=== PATIENT | male | born 1965 | race Caucasian/White ===

== ENCOUNTER 2018-05-28 21:08 | Observation (INO) | payer OTHER ==
[2018-05-28 21:47] LABS: PLATELET COUNT 288 10^3/uL (150-400)
--- NOTE | 2018-05-28 21:51 | EDPHY ---
HPI/HX/ROS/PE/MDM Narrative: CHIEF COMPLAINT: Weakness HISTORY OF PRESENT ILLNESS: The patient is a 52 y/o male with a history of 2 cardiac stents, multiple IN's, TIA, CHF, CAD, emphysema, and COPD arriving via EMS complaining of weakness while walking uphill tonight. The patient was at [facility] for a mental health evaluation. While driving back to the homeless snf his car ran out of gas. While walking to the gas station, the patient became lightheaded, weak, felt like his muscles were locking up, and thought he was going to fall down. He also developed chest and eye pain. Due to these symptoms he called 911. Currently he has lower left chest pain, lower left abdominal pain, and feels nauseous. He denies taking his baby Aspirin today. Denies taking an anticoagulant, using an inhaler or supplemental oxygen. No fever, chills, palpitations, vomiting, diarrhea, urinary complaints, headache. REVIEW OF SYSTEMS: Aside from elements discussed in the HPI, a comprehensive 10 system review of systems was reviewed and is negative. PAST MEDICAL HISTORY: 2 cardiac stents, multiple IN's, CHF, CAD, TIA, emphysema , COPD, sleep apnea, fatty liver, basal cell carcinoma, prostate cancer, oral cancer SOCIAL HISTORY: Homeless, originally from [place], single VITAL SIGNS: Reviewed by me GENERAL: Obese, resting comfortably in no respiratory distress. HEENT: Atraumatic. Eyes: No icterus, no injection. Mouth: dry mucous membranes. No erythema or lesions. Neck: supple with no adenopathy, Cushingoid hump LUNGS: Diminished breath sounds, prolonged expiratory phase, no wheezes, rhonchi or rales. CARDIAC: Tachycardia, no rubs, murmurs or gallops. ABDOMEN: Protuberant, soft, mild tenderness in left lower quadrant, nondistended , bowel sounds normal. BACK: No CVA tenderness. EXTREMITIES: No trauma. No edema. Range of motion is normal throughout. NEURO: Alert and oriented, grossly nonfocal. SKIN: Warm and dry, no rash. PSYCHIATRIC: Normal mentation, no agitation. Portions of this note were transcribed by a medical cash poster. I personally performed a history, physical exam, medical decision making, and confirmed accuracy of information the transcribed note. ED Course: The patient is a 52 y/o male with a history of 2 cardiac stents, multiple IN's, TIA, CHF, CAD, emphysema, and COPD arriving via EMS presenting with weakness, near syncope, chest pain, shortness of breath, and nausea while walking uphill tonight. On exam the patient has diminished breath sounds with a prolonged expiratory phase. Patient's O2Sats are around 90% while on room air. Labs, EKG, and chest x-ray ordered; 324mg PO Aspirin, DuoNeb, and 1L IV NS administered. Patient also reports that he has been having left lower quadrant abdominal discomfort and was seen at [facility] today. They advised that he have a workup to rule out an intra-abdominal mass as he has a history of having oral cancer, prostate cancer, and skin cancer. 2120: 12-LEAD EKG: Please see the full report in [facility]. My interpretation: Sinus arrhythmia, left axis deviation 2135: Patient has a negative chest x-ray. 2234: Patient has a negative POC troponin. 2258: I consulted with the hospitalist service, Dr. Stover accepts admission of this patient. 2305: Reassessed patient and discussed laboratory and imaging findings. I have also discussed plan for admission, which he is comfortable with. Patient reports improved air movement after the neb. He declines Solu-Medrol. Patient does have a large cushingoid hump at the back of his neck secondary to steroids. MDM: Differential diagnosis for the patient's shortness of breath was considered including but not limited to COPD exacerbation, pulmonary emboli, pulmonary edema, congestive heart failure, and cardiac causes. - Data Points Imaging Results: Imaging Impressions Chest X-Ray 05/28/18 21:35 Impression: Normal chest. Imaging: I viewed and interpreted images myself Laboratory Results: Laboratory Results 05/28/18 21:40 05/28/18 21:40 05/28/18 05/28/18 05/28/18 22:46 21:41 21:40 WBC RBC Hgb Hct MCV MCH MCHC RDW Plt Count MPV Neut % (Auto) Lymph % (Auto) Wilkes % (Auto) Eos % (Auto) Baso % (Auto) Nucleat RBC Rel Count Absolute Neuts (auto) Absolute Lymphs (auto) Absolute Monos (auto) Absolute Eos (auto) Absolute Basos (auto) Absolute Nucleated RBC Immature Gran % Immature Gran # D-Dimer 0.31 ug/mLFEU ug/mLFEU (0.00-0.50) Sodium Potassium Chloride Carbon Dioxide Anion Gap BUN Creatinine Estimated GFR Glucose Calcium Total Bilirubin 0.7 mg/dL mg/dL (0.1-1.4) Conjugated Bilirubin 0.1 mg/dL mg/dL (0.0-0.5) Unconjugated Bilirubin 0.6 mg/dL mg/dL (0.0-1.1) AST 30 IU/L IU/L (17-59) ALT 43 IU/L IU/L (21-72) Alkaline Phosphatase 109 IU/L IU/L (38-126) POC Troponin I 0.00 ng/mL ng/mL (0.00-0.08) Total Protein 7.0 g/dL g/dL (6.3-8.2) Albumin 4.1 g/dL g/dL (3.5-5.0) Lipase 61 IU/L IU/L (23-300) 05/28/18 05/28/18 21:40 21:40 WBC 9.81 10^3/uL H 10^3/uL (3.80-9.50) RBC 5.04 10^6/uL 10^6/uL (4.40-6.38) Hgb 14.0 g/dL g/dL (13.7-17.5) Hct 42.8 % % (40.0-51.0) MCV 84.9 fL fL (81.5-99.8) MCH 27.8 pg L pg (27.9-34.1) MCHC 32.7 g/dL g/dL (32.4-36.7) RDW 16.4 % H % (11.5-15.2) Plt Count 288 10^3/uL 10^3/uL (150-400) MPV 9.7 fL fL (8.7-11.7) Neut % (Auto) 73.8 % % (39.3-74.2) Lymph % (Auto) 17.6 % % (15.0-45.0) Wilkes % (Auto) 5.5 % % (4.5-13.0) Eos % (Auto) 1.6 % % (0.6-7.6) Baso % (Auto) 0.5 % % (0.3-1.7) Nucleat RBC Rel Count 0.0 % % (0.0-0.2) Absolute Neuts (auto) 7.23 10^3/uL H 10^3/uL (1.70-6.50) Absolute Lymphs (auto) 1.73 10^3/uL 10^3/uL (1.00-3.00) Absolute Monos (auto) 0.54 10^3/uL 10^3/uL (0.30-0.80) Absolute Eos (auto) 0.16 10^3/uL 10^3/uL (0.03-0.40) Absolute Basos (auto) 0.05 10^3/uL 10^3/uL (0.02-0.10) Absolute Nucleated RBC 0.00 10^3/uL 10^3/uL (0-0.01) Immature Gran % 1.0 % % (0.0-1.1) Immature Gran # 0.10 10^3/uL 10^3/uL (0.00-0.10) D-Dimer Sodium 138 mEq/L mEq/L (135-145) Potassium 4.0 mEq/L mEq/L (3.3-5.0) Chloride 99 mEq/L mEq/L (97-110) Carbon Dioxide 28 mEq/l mEq/l (22-31) Anion Gap 11 mEq/L mEq/L (8-16) BUN 22 mg/dL mg/dL (7-23) Creatinine 0.9 mg/dL mg/dL (0.7-1.3) Estimated GFR > 60 Glucose 354 mg/dL H mg/dL (70-100) Calcium 10.0 mg/dL mg/dL (8.5-10.4) Total Bilirubin Conjugated Bilirubin Unconjugated Bilirubin AST ALT Alkaline Phosphatase POC Troponin I Total Protein Albumin Lipase Medications Given: Discontinued Medications Albuterol/Ipratropium (Duoneb) 3 ml IH EDNOW ONE Stop: 05/28/18 22:05 Last Admin: 05/28/18 22:23 Dose: 3 ml Aspirin (Aspirin) 324 mg PO EDNOW ONE Stop: 05/28/18 22:05 Last Admin: 05/28/18 22:22 Dose: 324 mg Sodium Chloride (Ns) 500 mls @ 0 mls/hr IV EDNOW ONE; Wide Open PRN Reason: Protocol Stop: 05/28/18 22:05 Last Admin: 05/28/18 22:23 Dose: 500 mls Point of Care Test Results: Chemistry 05/28/18 21:41 POC Troponin I 0.00 ng/mL ng/mL (0.00-0.08) General Time Seen by Provider: 05/28/18 21:48 Initial Vital Signs: Initial Vital Signs Temperature (C) 36.9 C 05/28/18 21:10 Heart Rate 104 H 05/28/18 21:10 Respiratory Rate 18 05/28/18 21:10 Blood Pressure 129/84 H 05/28/18 21:10 O2 Sat (%) 93 05/28/18 21:10 O2 Delivery Mode Room Air Allergies/Adverse Reactions: No Known Allergies Allergy (Unverified 05/28/18 23:17) Departure - Departure Disposition: [facility] In[facility] Acute Clinical Impression: Hypoxic Chest pain Qualifiers: Chest pain type: other chest pain Qualified Code(s): R07.89 - Other chest pain Condition: Fair Report Scribed for: Karina Lancaster Report Scribed by: Britt Avalos Date of Report: 05/28/18 Time of Report: 21:51
[2018-05-28] MEDS ORDERED: ASPIRIN 81 MG CHEWABLE TAB PO ONE (22:04)
[2018-05-28] MEDS ORDERED: IPRATROPIUM/ALBUTEROL 3 ML DEYVIAL IH ONE (22:04)
[2018-05-28] MEDS ORDERED: NS 500 ML IV ONE (22:04)
[2018-05-28] MEDS ORDERED: ONDANSETRON DISINTEGRATING 4 MG TAB PO PRN (23:17)
[2018-05-28] MEDS ORDERED: ACETAMINOPHEN 325 MG TAB PO PRN (23:17)
[2018-05-28] MEDS ORDERED: ONDANSETRON 4 MG/2 ML VIAL IVP PRN (23:17)
[2018-05-28] MEDS ORDERED: ALBUTEROL 3 ML DEYVIAL IH PRN (23:17)
[2018-05-28] MEDS ORDERED: D50W 25 GM/50 ML VIAL IVP PRN (23:49)
--- NOTE | 2018-05-29 00:04 | CPEKG ---
Test Reason : OPEN Blood Pressure : / mmHG Vent. Rate : 078 BPM Atrial Rate : 073 BPM P-R Int : 146 ms QRS Dur : 096 ms QT Int : 359 ms P-R-T Axes : 062 -32 033 degrees QTc Int : 409 ms Sinus arrhythmia Left axis deviation Confirmed by Karina Lancaster ([id number]) on 05/29/2018 12:03:36 AM Referred By: Confirmed By:Karina Lancaster
--- NOTE | 2018-05-29 01:05 | PDGENHP ---
History and Physical - Chief Complaint Chest pain - History of Present Illness 52 yo morbidly obese patient with hx of CAD s/p PCI presenta fter episode of chest pain. Patient was walking up a hill today when he experienced L-sided chest pain associated with dizziness and shortness of breath. The hernandez reminded him of his previous heart attacks. The pain lasted several hours but is now resolved. He arrived here recently from [place] where he received his previous medical care. Case discussed with ED physician Dr. Lancaster; records reviewed in EMR. History Information - Allergies/Home Medication List Allergies/Adverse Reactions: No Known Allergies Allergy (Unverified 05/28/18 23:17) I have personally reviewed and updated: family history, medical history - Past Medical History coronary artery disease, diabetes type 2 - Surgical History Reports: appendectomy, cholecystectomy, hernia repair, coronary stent - Family History Positive for: diabetes type II, CAD - Social History Smoking Status: Former smoker Review of Systems Review of Systems: ROS: 10pt was reviewed & negative except for what was stated in HPI & below Physical Exam Physical Exam: Temp Pulse Resp BP Pulse Ox 36.9 C 104 H 18 129/84 H 93 05/28/18 21:10 05/28/18 21:10 05/28/18 21:10 05/28/18 21:10 05/28/18 21:10 Constitutional: no apparent distress, obese Eyes: PERRL, EOMI Ears, Nose, Mouth, Throat: moist mucous membranes, no oral mucosal ulcers Cardiovascular: regular rate and rhythym, systolic murmur Respiratory: no respiratory distress, clear to auscultation Gastrointestinal: normoactive bowel sounds, soft, non-tender abdomen Skin: warm, normal color Musculoskeletal: full muscle strength, no muscle tenderness Neurologic: AAOx3, CN II-XII Intact Psychiatric: interacting appropriately, not anxious Lab Data & Imaging Review 05/28/18 21:40 05/28/18 21:40 WBC 9.81 10^3/uL (3.80-9.50) H 05/28/18 21:40 RBC 5.04 10^6/uL (4.40-6.38) 05/28/18 21:40 Hgb 14.0 g/dL (13.7-17.5) 05/28/18 21:40 Hct 42.8 % (40.0-51.0) 05/28/18 21:40 MCV 84.9 fL (81.5-99.8) 05/28/18 21:40 MCH 27.8 pg (27.9-34.1) L 05/28/18 21:40 MCHC 32.7 g/dL (32.4-36.7) 05/28/18 21:40 RDW 16.4 % (11.5-15.2) H 05/28/18 21:40 Plt Count 288 10^3/uL (150-400) 05/28/18 21:40 MPV 9.7 fL (8.7-11.7) 05/28/18 21:40 Neut % (Auto) 73.8 % (39.3-74.2) 05/28/18 21:40 Lymph % (Auto) 17.6 % (15.0-45.0) 05/28/18 21:40 [place] % (Auto) 5.5 % (4.5-13.0) 05/28/18 21:40 Eos % (Auto) 1.6 % (0.6-7.6) 05/28/18 21:40 Baso % (Auto) 0.5 % (0.3-1.7) 05/28/18 21:40 Nucleat RBC Rel Count 0.0 % (0.0-0.2) 05/28/18 21:40 Absolute Neuts (auto) 7.23 10^3/uL (1.70-6.50) H 05/28/18 21:40 Absolute Lymphs (auto) 1.73 10^3/uL (1.00-3.00) 05/28/18 21:40 Absolute Monos (auto) 0.54 10^3/uL (0.30-0.80) 05/28/18 21:40 Absolute Eos (auto) 0.16 10^3/uL (0.03-0.40) 05/28/18 21:40 Absolute Basos (auto) 0.05 10^3/uL (0.02-0.10) 05/28/18 21:40 Absolute Nucleated RBC 0.00 10^3/uL (0-0.01) 05/28/18 21:40 Immature Gran % 1.0 % (0.0-1.1) 05/28/18 21:40 Immature Gran # 0.10 10^3/uL (0.00-0.10) 05/28/18 21:40 D-Dimer 0.31 ug/mLFEU (0.00-0.50) 05/28/18 22:46 Sodium 138 mEq/L (135-145) 05/28/18 21:40 Potassium 4.0 mEq/L (3.3-5.0) 05/28/18 21:40 Chloride 99 mEq/L (97-110) 05/28/18 21:40 Carbon Dioxide 28 mEq/l (22-31) 05/28/18 21:40 Anion Gap 11 mEq/L (8-16) 05/28/18 21:40 BUN 22 mg/dL (7-23) 05/28/18 21:40 Creatinine 0.9 mg/dL (0.7-1.3) 05/28/18 21:40 Estimated GFR > 60 05/28/18 21:40 Glucose 354 mg/dL (70-100) H 05/28/18 21:40 Calcium 10.0 mg/dL (8.5-10.4) 05/28/18 21:40 Total Bilirubin 0.7 mg/dL (0.1-1.4) 05/28/18 21:40 Conjugated Bilirubin 0.1 mg/dL (0.0-0.5) 05/28/18 21:40 Unconjugated Bilirubin 0.6 mg/dL (0.0-1.1) 05/28/18 21:40 AST 30 IU/L (17-59) 05/28/18 21:40 ALT 43 IU/L (21-72) 05/28/18 21:40 Alkaline Phosphatase 109 IU/L (38-126) 05/28/18 21:40 POC Troponin I 0.00 ng/mL (0.00-0.08) 05/28/18 21:41 Total Protein 7.0 g/dL (6.3-8.2) 05/28/18 21:40 Albumin 4.1 g/dL (3.5-5.0) 05/28/18 21:40 Lipase 61 IU/L (23-300) 05/28/18 21:40 Imaging Review: Imaging Impressions Chest X-Ray 05/28/18 21:35 Impression: Normal chest. Visualized and Interpreted EKG results: Yes EKG Interpretation: Positive for: normal sinsus rhythm Assessment & Plan Assessment: 52 yo M w/ hx of DM and CAD presents with chest pain. Plan: 1. Chest pain - Typical chest pain reminiscent of previous heart attacks, per patient. Initial evaluation was negative with troponin of 0 and ECG without acute ischemia(personally interpreted). HEART score of 5 indicating admission for observation. - Admit to PCU for observation - Monitor on telemetry, trend cardiac enzymes - Proceed per chest pain protocol pending above 2. CAD - Hx of PCI to LAD x2 in 2014. Patient reports he has had 10 NH's. - Continue home medications pending reconciliation - Acute management as above 3. IDDM - Patient takes U-500 roughly 20 units BID for this. - Will manage with insulin lispro standard SSI + insulin glargine 20 u BID initially, adjust as indicated - Check BG ACHS, D50 PRN for hypoglycemia Diet - NPO @ [place] Code - Full Ppx - LMWH Dispo - Admit under observation status
[2018-05-29 04:16] LABS: PLATELET COUNT 235 10^3/uL (150-400)
[2018-05-29 07:30] VITALS: BP 132/81
[2018-05-29] MEDS ORDERED: INSULIN LISPRO 100 UNIT/ML SC SCH (08:00)
[2018-05-29] MEDS ORDERED: ENOXAPARIN 40 MG/0.4 ML SYR SC SCH ×2 (09:00)
[2018-05-29] MEDS ORDERED: INSULIN GLARGINE 100 UNITS/ML UNIT SC SCH ×2 (09:00→21:00)
[2018-05-29] MEDS ORDERED: ASPIRIN 81 MG CHEWABLE TAB PO SCH (09:15)
[2018-05-29] MEDS ORDERED: VENLAFAXINE HCL 75 MG TAB PO SCH (09:15)
[2018-05-29] MEDS ORDERED: QUEtiapine FUMARATE 100 MG TAB PO SCH (09:15)
--- NOTE | 2018-05-29 15:59 | GDS ---
PRIMARY CARE PROVIDER: None currently established as patient recently moved to [place] from [place] . DISCHARGE DIAGNOSIS: Chest pain. HISTORY OF PRESENT ILLNESS: The patient is a pleasant 52-year-old gentleman with a past medical hist ory of coronary artery disease with a history of PCI with 2 LAD stents, who presented to the emergenc y room complaining of chest discomfort. His chest pain resolved at the time of his presentation in [facility] hospital [facility] room. He had no recurrence overnight. He was admitted for further monitoring. His tro ponins were trended overnight and negative x2. His ECG reviewed by myself personally did not show an y ST depressions or ST-segment elevations or depressions. He was felt stable for discharge from the hospital with a plan of short-term followup with Cardiology, which he will need to establish with any way in light of his cardiac history and plan to reside indefinitely in [place]. Patient seemed agre eable to these recommendations. HOSPITAL COURSE BY PROBLEM: 1. Chest pain. Patient ruled out for acute MA overnight with a normal ECG and normal troponins. I have recommended that he continue with his cardiac medications and schedule a formal consultation as an outpatient with [facility] for further recommendations and consideration of outpatient cardiac stress testing. 2. Coronary artery disease, patient has a history of a PCI x2 with LAD stents. Continue current med [facility] management including aspirin and statin therapy. 3. Diabetes mellitus type 2, insulin dependent. No changes were made during this hospitalization. He will continue with his insulin regimen that he came into the hospital with. Hemoglobin A1c was ob tained, but is currently pending at the time of discharge. It sounds like he has a followup plan wit h the [facility] for ongoing primary care. 4. PTSD, patient has continued on Seroquel and venlafaxine. 5. Disposition, patient currently does not have a home, but lives out of his vehicle here in [facility]. EXAM: On day of discharge: VITAL SIGNS: Temperature 36.6, blood pressure 132/81, heart rate 66, re spirations 22, saturating 98% 4 L. GENERAL: Patient appears comfortable. He is awake, alert, conve rsant, no acute distress. HEART: Regular no murmurs appreciated. LUNGS: Clear to auscultation wit h normal respiratory effort. ABDOMEN: Obese, soft, nontender, nondistended. Normal bowel sounds. : No Hooks catheter in place. EXTREMITIES: No pitting edema or calf pain with palpation. NOTABLE STUDIES: White blood cell count 8, hemoglobin 12, platelets 235. D-dimer negative at 0.31. Sodium 138, potassium 4.1, chloride 104, bicarbonate 25, BUN 20, creatinine 0.7, glucose 302. Liver function tests within normal limits. Troponins negative x2. Lipase 61. DISCHARGE MEDICATIONS: 1. Aspirin 81 mg daily. 2. Atorvastatin 80 mg nightly. 3. Toviaz 8 mg daily. 4. Regular insulin. 5. Metoprolol 25 mg nightly. 6. Seroquel 100 mg twice a day. 7. Venlafaxine 75 mg twice a day. DISCHARGE INSTRUCTIONS: I have recommended that the patient have a followup visit with [facility] for formal cardiology consultation to discuss outpatient stress testing. He plans on living in [facility] for the foreseeable future, so would probably be reasonable for him to go ahead and establish [facility] at this time as well. Otherwise, I recommend keeping his followup as scheduled with [facility] for ongoing primary care. 35 minutes of time dedicated to discharge efforts. /[id number]/MODL
[2018-05-29] MEDS ORDERED: METOPROLOL TARTRATE 25 MG TAB PO SCH (21:00)
[2018-05-29] MEDS ORDERED: ATORVASTATIN CALCIUM 40 MG TAB PO SCH (21:00)
--- NOTE | 2018-05-30 10:22 | ASMTLACE ---
LACE Length of stay for Answers: Less than 1 day current admission Acuity / Level of Answers: No Care: Did the patient have an inpatient admission? Comorbidities - select Answers: Coronary Artery Disease all that apply Diabetes (uncontrolled or controlled) Previous myocardial infarction Other Notes: Morbid obesity # of Emergency department Answers: 1-2 visits in the last 6 months Social determinants Answers: Homelessness (street, [facility]) Lack of community resources and/or lack of social support (no pcp, lives alone, transportation, akil d) Score: 13 Date Signed: 05/30/2018 10:21 AM Electronically Signed By:Cristina Mireles RN
--- NOTE | 2018-05-30 10:30 | ASDISCHSUM ---
Discharge Information Plan Status:Homeless/[facility] Medically Cleared to Leave:05/29/2018 Discharge Date:05/29/2018 12:46 PM CM D/C Disposition:Streets (Homeless) ADT D/C Disposition:Home, Routine, Self-Care Projected Discharge Date:05/29/2018 12:46 PM Transportation at D/C:Bus Ticket Discharge Delay Reason: Follow-Up Date:05/29/2018 12:46 PM Discharge Slot:1 - 8:01 am - 12:00 noon Final Diagnosis:Chest pain, morbid obesity, CAD, hx of prior FL, DM type II Placement Information Patient Contact Information Contact Name:FATOUMATA Relationship: Address: Work Phone: City: [facility] Phone: [facility]/[employer] Code: Email: Financial Information Financial Class:Medicare Primary Plan Desc:MEDICARE OUTPATIENT Primary Plan Number:[id number] Secondary Plan Desc: Secondary Plan Number: Assessment Information LACE LACE Length of stay for Answers: Less than 1 day current admission Acuity / Level of Answers: No Care: Did the patient have an inpatient admission? Comorbidities - select Answers: Coronary Artery Disease all that apply Diabetes (uncontrolled or controlled) Previous myocardial infarction Other Notes: Morbid obesity # of Emergency department Answers: 1-2 visits in the last 6 months Social determinants Answers: Homelessness (street, snf) Lack of community resources and/or lack of social support (no pcp, lives alone, transportation, akil d) Score: 13 Date Signed: 05/30/2018 10:21 AM Electronically Signed By:Cristina Mireles RN [facility] Progress Note CM Note CM Note Notes: Note for Thursday05/29/18, late entry - [employer] down for maintenance Thursday afternoon/evening Reviewed chart, spoke with CEDRIC Morfin regarding discharge plan of care, pt's progress. Pt admitted with chest pain. History includes morbid obesity, CAD, hx of prior FL, DM type 2. Per Shelbie, pt to discharge independently. Met with pt to discuss current living situation and potential needs. Pt reports being homeless, living in his van and staying at the snf. Pt denies needs, except a bus ticket to get back to his van. Local bus pass provided. IM/SCHULTZ forms signed, placed in chart. Pt to follow up as directed. CM available for any further issues or concerns. Discharge Plan: Streets/snf (pt is homeless) Date Signed: 05/30/2018 10:26 AM Electronically Signed By:Cristina Mireles RN Intervention Information Intervention Type:*IM-Signed Date of Service:05/30/2018 10:22 AM Patient Type:Observation Staff Member:CEDRIC Mireles Taylor Hours: Discipline: Severity: Comment: Intervention Type:*SCHULTZ-Signed Date of Service:05/30/2018 10:22 AM Patient Type:Observation Staff Member:CEDRIC Mireles Taylor Hours: Discipline: Severity: Comment: Intervention Type:Bus Pass Date of Service:05/30/2018 10:22 AM Patient Type:Observation Staff Member:CEDRIC Mireles Taylor Hours: Discipline: Severity: Comment:
== END 2018-05-29 12:46 | disposition home or self-care (01) ==
LOC: F2W 05-29 01:18
PROVIDERS: ADMIT Student in an Organized Health Care Education/Training Program; ATTEND Internal Medicine
DX: R07.9 Chest pain, unspecified (principal); I25.10 Atherosclerotic heart disease of native coronary artery without angina pectoris; E11.9 Type 2 diabetes mellitus without complications; E66.01 Morbid (severe) obesity due to excess calories; F43.10 Post-traumatic stress disorder, unspecified; E86.9 Volume depletion, unspecified; I25.2 Old myocardial infarction; I50.9 Heart failure, unspecified; J43.9 Emphysema, unspecified; Z86.73 Personal history of transient ischemic attack (TIA), and cerebral infarction without residual deficits; Z95.5 Presence of coronary angioplasty implant and graft; Z59.0 Homelessness; Z79.4 Long term (current) use of insulin
CPT/HCPCS: 71046; 93005; 96360; 99285; G0378; J1650; J1815; 84484-PO

== ENCOUNTER 2018-06-07 15:56 | Observation (INO) | payer OTHER ==
[2018-06-07] MEDS ORDERED: NITROGLYCERIN 0.4 MG BTL SL ONE (16:09)
--- NOTE | 2018-06-07 16:09 | EDPHY ---
General Time Seen by Provider: 06/07/18 16:01 Narrative: CHIEF COMPLAINT: Chest pain HISTORY OF PRESENT ILLNESS: Patient presents by private vehicle with complaints of chest pain. Is a left- sided chest pain that started around 10 30 or 11:00 a.m.. It is constant duration. Described as a sharp, stabbing pain. Somewhat worse with exertion. Does not radiate. No shortness of breath. Occasional cough. The pain did not improve with 325 mg of aspirin or 1 sublingual nitro administered at 2:00 p.m.. He states that he has had somewhat of a upper respiratory infection over the past week. He has extensive coronary artery disease with previous AK, multiple stents, hypertension, dyslipidemia, diabetes mellitus and morbid obesity. He has no improvement throughout the day. He has a cardiology appointment scheduled next Thursday but does not know the name. He is scheduled for a stress test within. Nonsmoker. Recently relocated from [place]. Family history positive for CAD less than 60 years old. No other associated complaints or modifying factors. REVIEW OF SYSTEMS: 10 systems were reviewed and negative with the exception of the elements mentioned in the history of present illness. PCP: Ashwini SPECIALISTS: Pending appointment with [facility] on Thursday the PAST MEDICAL HISTORY: Dyslipidemia, diabetes mellitus, coronary artery disease with stents, myocardial infarction, hypertension, morbid obesity PAST SURGICAL HISTORY: PCI with stent placement SOCIAL HISTORY: Never smoker. No drug or alcohol use. Recently moved from [place] 1 month ago. FAMILY HISTORY: Noncontributory EXAMINATION: General Appearance: Alert, no distress Head: normocephalic, atraumatic Eyes: Pupils equal and round, no conjunctival pallor or injection ENT, Mouth: Mucous membranes moist Neck: Normal inspection, supple, non-tender Respiratory: Lungs are clear to auscultation Cardiovascular: Regular rate and rhythm. No murmur good signs of perfusion. Gastrointestinal: Morbidly obese Abdomen is soft and nontender Neurological: A&O, nonfocal, normal gait Skin: Warm and dry, no rash Extremities: Nontender, no pedal edema Psychiatric: Mood and affect normal DIFFERENTIAL DIAGNOSES: Including but not limited to ACS, PE, pneumonia, stable angina, unstable angina , pericarditis, pneumonitis, pericardial effusion, soft diet this, reflux MDM: 4:10 p.m. Chest pain in patient with multiple risk factors for coronary artery disease and known coronary disease. His initial EKG does not reveal any acute ischemia. I do not have a comparison for this. He has moderate risk but in no acute distress. Vital signs are stable. No SIRS criteria. Perc negative. Laboratory studies have been ordered. He is placed on a monitoring coordinator. Initial heart score is 4, with pending troponin. 5:15 p.m. Chest x-ray is unremarkable for any acute findings with large body habitus obscuring some margins. Patient will require admission the hospital as he does have a moderate risk for adverse cardiac event given his heart score of 4. He is also scheduled for a stress test next Thursday, which she will likely need tomorrow. I discussed the case with the hospitalist Dr. Solorzano. He will admit the patient is service. He is admitted stable condition. EKG interpretation: Dr. Romero. No ischemia. No previous available for comparison SUPERVISION: Patient was independently examined, but I discussed the case with my secondary supervising physician Dr. Romero CONSULTATION: Hospitalist admission - History Smoking Status: Former smoker - Objective Vital Signs: Initial Vital Signs Temperature (C) 98.6 F 06/07/18 16:06 Heart Rate 76 06/07/18 16:06 Respiratory Rate 18 06/07/18 16:06 Blood Pressure 139/80 H 06/07/18 16:06 O2 Sat (%) 91 L 06/07/18 16:06 O2 Delivery Mode Room Air Allergies/Adverse Reactions: morphine Allergy (Severe, Verified 06/07/18 16:09) Anaphylaxis Home Medications: Medication Instructions Recorded Aspirin [Aspirin 81mg (*)] 81 mg PO DAILY 05/29/18 Atorvastatin Calcium 80 mg PO HS 05/29/18 Fesoterodine Fumarate [Toviaz (*)] 8 mg PO DAILY 05/29/18 Insulin Regular, Human [Humulin R 500 unit SQ BID 05/29/18 U-500] Metoprolol Tartrate [Lopressor 25 25 mg PO HS 05/29/18 mg (*)] QUEtiapine FUMARATE [Seroquel 100 100 mg PO BID 05/29/18 mg (*)] Venlafaxine HCl [Venlafaxine 75MG 75 mg PO BID 05/29/18 (*)] Losartan Potassium [Cozaar 25 mg 25 mg PO DAILY 06/07/18 (*)] Nitroglycerin [Nitrostat 0.4 mg 0.4 mg SL Q5M PRN 06/07/18 (*)] Laboratory Results: Laboratory Results 06/07/18 16:24 06/07/18 16:24 06/07/18 06/07/18 06/07/18 16:27 16:24 16:24 WBC RBC Hgb Hct MCV MCH MCHC RDW Plt Count MPV Neut % (Auto) Lymph % (Auto) [place] % (Auto) Eos % (Auto) Baso % (Auto) Nucleat RBC Rel Count Absolute Neuts (auto) Absolute Lymphs (auto) Absolute Monos (auto) Absolute Eos (auto) Absolute Basos (auto) Absolute Nucleated RBC Immature Gran % Immature Gran # PT 13.5 SEC SEC (12.0-15.0) INR 1.01 (0.83-1.16) APTT 27.0 SEC SEC (23.0-38.0) Sodium 138 mEq/L mEq/L (135-145) Potassium 3.9 mEq/L mEq/L (3.3-5.0) Chloride 102 mEq/L mEq/L (97-110) Carbon Dioxide 26 mEq/l mEq/l (22-31) Anion Gap 10 mEq/L mEq/L (8-16) BUN 21 mg/dL mg/dL (7-23) Creatinine 0.7 mg/dL mg/dL (0.7-1.3) Estimated GFR > 60 Glucose 209 mg/dL H mg/dL (70-100) Calcium 9.4 mg/dL mg/dL (8.5-10.4) Total Bilirubin 0.5 mg/dL mg/dL (0.1-1.4) Conjugated Bilirubin 0.2 mg/dL mg/dL (0.0-0.5) Unconjugated Bilirubin 0.3 mg/dL mg/dL (0.0-1.1) AST 24 IU/L IU/L (17-59) ALT 41 IU/L IU/L (21-72) Alkaline Phosphatase 104 IU/L IU/L (38-126) POC Troponin I 0.00 ng/mL ng/mL (0.00-0.08) NT-Pro-B Natriuret Pep 67 pg/mL pg/mL (0-125) Total Protein 7.0 g/dL g/dL (6.3-8.2) Albumin 3.9 g/dL g/dL (3.5-5.0) Lipase 38 IU/L IU/L (23-300) 06/07/18 16:24 WBC 9.68 10^3/uL H 10^3/uL (3.80-9.50) RBC 4.77 10^6/uL 10^6/uL (4.40-6.38) Hgb 13.3 g/dL L g/dL (13.7-17.5) Hct 40.8 % % (40.0-51.0) MCV 85.5 fL fL (81.5-99.8) MCH 27.9 pg pg (27.9-34.1) MCHC 32.6 g/dL g/dL (32.4-36.7) RDW 16.4 % H % (11.5-15.2) Plt Count 275 10^3/uL 10^3/uL (150-400) MPV 10.0 fL fL (8.7-11.7) Neut % (Auto) 68.5 % % (39.3-74.2) Lymph % (Auto) 21.6 % % (15.0-45.0) Catron % (Auto) 6.9 % % (4.5-13.0) Eos % (Auto) 1.9 % % (0.6-7.6) Baso % (Auto) 0.7 % % (0.3-1.7) Nucleat RBC Rel Count 0.0 % % (0.0-0.2) Absolute Neuts (auto) 6.63 10^3/uL H 10^3/uL (1.70-6.50) Absolute Lymphs (auto) 2.09 10^3/uL 10^3/uL (1.00-3.00) Absolute Monos (auto) 0.67 10^3/uL 10^3/uL (0.30-0.80) Absolute Eos (auto) 0.18 10^3/uL 10^3/uL (0.03-0.40) Absolute Basos (auto) 0.07 10^3/uL 10^3/uL (0.02-0.10) Absolute Nucleated RBC 0.00 10^3/uL 10^3/uL (0-0.01) Immature Gran % 0.4 % % (0.0-1.1) Immature Gran # 0.04 10^3/uL 10^3/uL (0.00-0.10) PT INR APTT Sodium Potassium Chloride Carbon Dioxide Anion Gap BUN Creatinine Estimated GFR Glucose Calcium Total Bilirubin Conjugated Bilirubin Unconjugated Bilirubin AST ALT Alkaline Phosphatase POC Troponin I NT-Pro-B Natriuret Pep Total Protein Albumin Lipase Medications Given: Discontinued Medications Nitroglycerin (Nitrostat) 0.4 mg SL EDNOW ONE Stop: 06/07/18 16:10 Last Admin: 06/07/18 16:14 Dose: 0.4 mg Point of Care Test Results: Chemistry 06/07/18 16:27 POC Troponin I 0.00 ng/mL ng/mL (0.00-0.08) Departure - Departure Disposition: [facility] Inpatient Acute Clinical Impression: Acute chest pain, CAD in [place] artery Condition: Good Referrals: NONE *PRIMARY CARE P,. [Primary Care Provider] - As per Instructions
[2018-06-07 16:43] LABS: INR 1.01 (0.83-1.16); PLATELET COUNT 275 10^3/uL (150-400); PROTIME(PATIENT) 13.5 SEC (12.0-15.0)
[2018-06-07] MEDS ORDERED: ACETAMINOPHEN 325 MG TAB PO PRN (18:14)
[2018-06-07] MEDS ORDERED: D50W 25 GM/50 ML VIAL IVP PRN (18:19)
--- NOTE | 2018-06-07 21:24 | PDGENHP ---
History and Physical - Chief Complaint chest pain - History of Present Illness 52yo M with CAD s/p DESx2 to LAD in 2013, type 2 diabetes, obesity presents with chest pain. Feels like "someone is stabbing my heart." Left side of chest, associated with diaphoresis. No radiation of pain, nausea, dyspnea, presyncope/ syncope. Pain came on at rest. No change with exertion, position. Not pleuritic. He took nitroglycerin that slightly improved but did not completely relieve the pain. His symptoms started around 1030 AM. He went to his PCP at [facility] who recommended he come to ED. His symptoms persisted until his arrival here and resolved rather spontaneously. Of note, this pain is similar but more intense than the pain he had on 05/28 that prompted him to come to the ED. At that time, he was admitted overnight and ruled out for ACS; no other testing was done. He was referred to [facility] and actually had an appointment for a stress test on 06/16. Upon my interview with the patient, he is chest pain free. In the ED, he had stable vitals with a negative troponin and non-ischemic ECG. Given his risk factors, he is being admitted for further risk stratification. Case discussed with ED provider Sandeep Gonzalez. History Information - Allergies/Home Medication List Allergies/Adverse Reactions: morphine Allergy (Severe, Verified 06/07/18 16:09) Anaphylaxis Home Medications: Aspirin [Aspirin 81mg (*)] 81 mg PO DAILY 05/29/18 [Last Taken 06/07/18] Atorvastatin Calcium 80 mg PO HS 05/29/18 [Last Taken 06/06/18] Fesoterodine Fumarate [Toviaz (*)] 8 mg PO DAILY 05/29/18 [Last Taken 06/07/18] Insulin Regular, Human [Humulin R U-500] 0 unit SQ BID 05/29/18 [Last Taken 23] Metoprolol Tartrate [Lopressor 25 mg (*)] 25 mg PO HS 05/29/18 [Last Taken 06/06] QUEtiapine FUMARATE [Seroquel 100 mg (*)] 100 mg PO BID 05/29/18 [Last Taken ] Venlafaxine HCl [Venlafaxine 75MG (*)] 75 mg PO BID 09/08/18 [Last Taken ] Losartan Potassium [Cozaar 25 mg (*)] 25 mg PO DAILY 06/07/18 [Last Taken ] Nitroglycerin [Nitrostat 0.4 mg (*)] 0.4 mg SL Q5M PRN 06/07/18 [Last Taken X3] I have personally reviewed and updated: family history, medical history, social history, surgical history - Past Medical History coronary artery disease (s/p OLVIN x2 to LAD in 2012. His punch operator in [place] was Dr Nader Gómez at [facility] in [place].), diabetes type 2, hypertension Additional medical history: prostate cancer s/p seed implantation radiotherapy, tongue cancer, basal cell skin cancer - Surgical History Reports: appendectomy, cholecystectomy, hernia repair, coronary stent - Family History Positive for: diabetes type II, CAD - Social History Smoking Status: Former smoker Alcohol Use: None Drug Use: None Additional social history: Living in [place]. Just recently moved to [place] from [place], [place]. Unemployed as he's on disability. Review of Systems Review of Systems: ROS: 10pt was reviewed & negative except for what was stated in HPI & below Physical Exam Physical Exam: Temp Pulse Resp BP Pulse Ox 36.2 C 66 12 140/77 H 94 06/07/18 18:30 06/07/18 18:30 06/07/18 18:30 06/07/18 18:30 06/07/18 18:30 O2 (L/minute) 1.5 Constitutional: no apparent distress, appears nourished, not in pain, obese Eyes: PERRL, anicteric sclera, EOMI Ears, Nose, Mouth, Throat: moist mucous membranes, hearing normal, ears appear normal, no oral mucosal ulcers Cardiovascular: regular rate and rhythym, no murmur, rub, or gallop, No edema Respiratory: no respiratory distress, no rales or rhonchi, clear to auscultation Gastrointestinal: normoactive bowel sounds, soft, non-tender abdomen, no palpable masses, distension Genitourinary: no bladder fullness, no bladder tenderness Skin: warm, normal color, no rashes or abrasions, no fluctuance, no induration, No mottled Musculoskeletal: full muscle strength, no muscle tenderness, normal joint ROM, no joint effusions Neurologic: AAOx3 Psychiatric: interacting appropriately, not anxious, not encephalopathic, thought process linear Lab Data & Imaging Review 06/07/18 16:24 06/07/18 16:24 WBC 9.68 10^3/uL (3.80-9.50) H 06/07/18 16:24 RBC 4.77 10^6/uL (4.40-6.38) 06/07/18 16:24 Hgb 13.3 g/dL (13.7-17.5) L 06/07/18 16:24 Hct 40.8 % (40.0-51.0) 06/07/18 16:24 MCV 85.5 fL (81.5-99.8) 06/07/18 16:24 MCH 27.9 pg (27.9-34.1) 06/07/18 16:24 MCHC 32.6 g/dL (32.4-36.7) 06/07/18 16:24 RDW 16.4 % (11.5-15.2) H 06/07/18 16:24 Plt Count 275 10^3/uL (150-400) 06/07/18 16:24 MPV 10.0 fL (8.7-11.7) 06/07/18 16:24 Neut % (Auto) 68.5 % (39.3-74.2) 06/07/18 16:24 Lymph % (Auto) 21.6 % (15.0-45.0) 06/07/18 16:24 [place] % (Auto) 6.9 % (4.5-13.0) 06/07/18 16:24 Eos % (Auto) 1.9 % (0.6-7.6) 06/07/18 16:24 Baso % (Auto) 0.7 % (0.3-1.7) 06/07/18 16:24 Nucleat RBC Rel Count 0.0 % (0.0-0.2) 06/07/18 16:24 Absolute Neuts (auto) 6.63 10^3/uL (1.70-6.50) H 06/07/18 16:24 Absolute Lymphs (auto) 2.09 10^3/uL (1.00-3.00) 06/07/18 16:24 Absolute Monos (auto) 0.67 10^3/uL (0.30-0.80) 06/07/18 16:24 Absolute Eos (auto) 0.18 10^3/uL (0.03-0.40) 06/07/18 16:24 Absolute Basos (auto) 0.07 10^3/uL (0.02-0.10) 06/07/18 16:24 Absolute Nucleated RBC 0.00 10^3/uL (0-0.01) 06/07/18 16:24 Immature Gran % 0.4 % (0.0-1.1) 06/07/18 16:24 Immature Gran # 0.04 10^3/uL (0.00-0.10) 06/07/18 16:24 PT 13.5 SEC (12.0-15.0) 06/07/18 16:24 INR 1.01 (0.83-1.16) 06/07/18 16:24 APTT 27.0 SEC (23.0-38.0) 06/07/18 16:24 Sodium 138 mEq/L (135-145) 06/07/18 16:24 Potassium 3.9 mEq/L (3.3-5.0) 06/07/18 16:24 Chloride 102 mEq/L (97-110) 06/07/18 16:24 Carbon Dioxide 26 mEq/l (22-31) 06/07/18 16:24 Anion Gap 10 mEq/L (8-16) 06/07/18 16:24 BUN 21 mg/dL (7-23) 06/07/18 16:24 Creatinine 0.7 mg/dL (0.7-1.3) 06/07/18 16:24 Estimated GFR > 60 06/07/18 16:24 Glucose 209 mg/dL (70-100) H 06/07/18 16:24 Calcium 9.4 mg/dL (8.5-10.4) 06/07/18 16:24 Total Bilirubin 0.5 mg/dL (0.1-1.4) 06/07/18 16:24 Conjugated Bilirubin 0.2 mg/dL (0.0-0.5) 06/07/18 16:24 Unconjugated Bilirubin 0.3 mg/dL (0.0-1.1) 06/07/18 16:24 AST 24 IU/L (17-59) 06/07/18 16:24 ALT 41 IU/L (21-72) 06/07/18 16:24 Alkaline Phosphatase 104 IU/L (38-126) 06/07/18 16:24 POC Troponin I 0.00 ng/mL (0.00-0.08) 06/07/18 16:27 NT-Pro-B Natriuret Pep 67 pg/mL (0-125) 06/07/18 16:24 Total Protein 7.0 g/dL (6.3-8.2) 06/07/18 16:24 Albumin 3.9 g/dL (3.5-5.0) 06/07/18 16:24 Lipase 38 IU/L (23-300) 06/07/18 16:24 Visualized and Interpreted imaging results: Yes Interpretation: CXR: slightly hypoexpanded, no infiltrate or effusion, likely enlarged left atrium, pulmonary arteries also appear plump consistent with pulmonary hypertension (interpreted by me) Visualized and Interpreted EKG results: Yes EKG additional interpertation: ECG: normal sinus rhythm, good R wave progression , normal ST-T segment changes, no right heart strain (interpreted by me) Assessment & Plan Assessment: 52yo M with CAD s/p DESx2 to LAD in 2013, type 2 diabetes, obesity presents with chest pain. Admitted for further risk stratification. Plan: #Chest pain: Typical cardiac pain. Initial trop/ecg negative for ischemia. While his symptoms are more pronounced than his 05/28 hospital stay, I do not think that he's having unstable angina. Low concern for PE; d-dimer checked last time with similar symptoms and was normal. - Serial troponin/ecg - Telemetry - TTE - Plan for stress test tomorrow pending above evaluation - If develops additional CP overnight or trops elevated, will start heparin gtt #CAD: Has 2 OLVIN to LAD that were placed in 2013 in [place]. - Continue aspirin, statin, beta christy #Diabetes: A1c 8.4% recently. - Continue U500 sliding scale, regular BG checks #HTN: Controlled. - Continue home lisinopril, metoprolol #PTSD: Stable - Continue seroquel, venlafaxine Diet: cardiac VTE ppx: LMWH Code: full Dispo: Admit under observation to PCU for cardiac monitoring and evaluation of chest pain.
[2018-06-07] MEDS: VENLAFAXINE HCL 75 MG TAB PO SCH (21:59)
[2018-06-07] MEDS: QUEtiapine FUMARATE 100 MG TAB PO SCH (21:59)
[2018-06-07] MEDS: ATORVASTATIN CALCIUM 40 MG TAB PO SCH (21:59)
[2018-06-07] MEDS: METOPROLOL TARTRATE 25 MG TAB PO SCH (21:59)
[2018-06-07] MEDS: INSULIN REGULAR HUMAN SQ SCH (22:00)
--- NOTE | 2018-06-07 23:16 | CPEKG ---
Test Reason : OPEN Blood Pressure : / mmHG Vent. Rate : 073 BPM Atrial Rate : 074 BPM P-R Int : 133 ms QRS Dur : 094 ms QT Int : 364 ms P-R-T Axes : 029 -18 053 degrees QTc Int : 401 ms Sinus rhythm Borderline left axis deviation Confirmed by Jzazmine Romero ([id number]) on 06/07/2018 11:15:54 PM Referred By: Confirmed By:Jazzmine Romero
[2018-06-08] MEDS ORDERED: INSULIN LISPRO 100 UNIT/ML SC SCH (08:00)
[2018-06-08] MEDS: NITROGLYCERIN 0.4 MG BTL SL PRN ×3 (08:06→08:25)
[2018-06-08] MEDS: LOSARTAN POTASSIUM 25 MG TAB PO SCH (08:08)
[2018-06-08] MEDS: ENOXAPARIN 40 MG/0.4 ML SYR SC SCH ×2 (08:08→19:55)
[2018-06-08] MEDS: VENLAFAXINE HCL 75 MG TAB PO SCH ×2 (08:08→19:54)
[2018-06-08] MEDS: FESOTERODINE FUMARATE 8 MG TAB.ER PO SCH (08:08)
[2018-06-08] MEDS: INSULIN REGULAR HUMAN SQ SCH ×2 (08:08→21:45)
[2018-06-08] MEDS: QUEtiapine FUMARATE 100 MG TAB PO SCH ×2 (08:08→20:01)
[2018-06-08] MEDS: ASPIRIN 81 MG CHEWABLE TAB PO SCH (08:08)
--- NOTE | 2018-06-08 11:10 | CPEKG ---
Test Reason : OPEN Blood Pressure : / mmHG Vent. Rate : 055 BPM Atrial Rate : 055 BPM P-R Int : 149 ms QRS Dur : 101 ms QT Int : 413 ms P-R-T Axes : 060 -20 048 degrees QTc Int : 395 ms Sinus rhythm Borderline left axis deviation Confirmed by Jose C Calderon ([id number]) on 06/08/2018 11:09:49 AM Referred By: Confirmed By:Jose C Calderon
--- NOTE | 2018-06-08 11:53 | HOSPPROG ---
Hospitalist Progress Note Assessment/Plan: 52yo M with CAD s/p DESx2 to LAD in 2013, type 2 diabetes, obesity presents with chest pain. Admitted for further risk stratification. Plan: #Chest pain: Typical cardiac pain. Given reucrrent sxs after recent hospitalization for the same and ongoing significant chest pain, taken for cardiac cath, initial w/u including trops/ecg negative. #CAD: Has 2 OLVIN to LAD that were placed in 2013 in [place]. - Continue aspirin, statin, beta christy #Diabetes: A1c 8.4% recently. - Continue U500 sliding scale, regular BG checks #HTN: Controlled. - Continue home lisinopril, metoprolol #PTSD: Stable - Continue seroquel, venlafaxine Diet: cardiac VTE ppx: LMWH Code: full Dispo: Given ongoing severe chest pain will need IP status for eval/mgmt of above Care plan reviewed with cardiolgoy as above Subjective: no significnat overnight events, patient with continued crushing chest pain this am on and of Objective: Vital Signs Temp Pulse Resp BP Pulse Ox 36.5 C 59 L 16 118/68 100 06/08/18 07:32 06/08/18 07:32 06/08/18 07:32 06/08/18 08:08 06/08/18 07:32 06/07/18 06/08/18 06/09/18 05:59 05:59 05:59 Intake Total 300 Balance 300 PT 13.5 SEC (12.0-15.0) 06/07/18 16:24 INR 1.01 (0.83-1.16) 06/07/18 16:24 awake alert anicteric op clear rrr no mrg cta b soft nt nd no cce warm dry well perfused oriented approprate ICD10 Worksheet Patient Problems: Problems Problem Status Onset Hypoxic Acute Chest pain Acute Acute chest pain Acute CAD in [place] artery Acute
--- NOTE | 2018-06-08 12:14 | ECHO ---
[email or web address] [address] [address] Main: [phone] Fax: Transthoracic Echocardiogram Name: DANILO BUTTERFIELD MR#: [id number] Study Date: 06/08/2018 Study Time: 07:36 AM Date of : 1965 Age: 52 year(s) Height: 167.6 cm (66 in.) Weight: 119.3 kg (263 lb.) BSA: 2.25 m2 Gender: Male Examination: Echo Indication: chest pain; h/o NC and stents Image Quality: Technically Difficult Contrast: Requested by: Sha Solorzano BP: 118 mmHg/68 mmHg Heart Rate: Rhythm: Indication: chest pain; h/o NC and stents Procedure Staff [place] Instructor: Joelle Morillo [facility] Reading Physician: Randal Rios MD Requesting Provider: Conclusions: Normal size left ventricle. Normal global systolic LV function. EF is 66 %. No regional wall motion abnormality. Normal diastolic LV function. Normal RV function. The left atrium is normal in size. The right atrium is normal in size. Right ventricular systolic pressure measures 22mmHg. No pericardial effusion. Measurements: Chambers Valvular Assessment AV/MV Valvular Assessment TV/PV Normal Normal Normal Name Value Range Name Value Range Name Value Range Ao Perlita (MM): 3.8 cm (2.2 cm-3.7 AV Vmax: 1.50 m/s (1 m/s-1.7 TR Vmax: 2.05 mm/s ( - ) cm) m/s) TR PGmax: 17 mmHg ( - ) IVSd (2D): 1.0 cm (0.6 cm-1.1 AV maxP mmHg ( - ) syst. PAP: 22 mmHg ( - ) cm) LVOT Vmax: 1.04 m/s (0.7 m/s-1.1 PV Vmax: 1.15 m/s (0.6 m/s-0.9 LVDd (2D): 5.0 cm (4.2 cm-5.9 m/s) m/s) cm) BRIDGET (Vmax): 2.4 cm2 ( - ) PV PGmax: 5 mmHg ( - ) LVDs (2D): 3.1 cm (2.1 cm-4 MV E Vmax: 0.90 m/s ( - ) cm) MV A Vmax: 0.77 m/s ( - ) LVPWd (2D): 0.9 cm (0.6 cm-1 MV E/A: 1.17 ( - ) cm) LVOTd 2.1 cm 2.1 cm mm LVEF (BP): 66 % (>=55 %) RVDd(2D): 3.2 cm (1.9 cm-3.8 cmmm) Patient: DANILO BUTTERFIELD Study Date: 06/08/2018 Page 1 of 2 07:36 AM Continued Measurements: Chambers Valvular Assessment AV/MV Valvular Assessment TV/PV Name Value Name Value Name Value LADs Lon.7 cm MV DecTime: 218 m/s CVP (est.): 5 mmHg LA Area: 18.2 cm2 MV E' Septal: 0.06 m/s LA Volume: 62 ml MV E/E' Septal: 14.20 LA Volume Index: 27.6 ml/m2 MV E/E' Lateral: 8.10 TAPSE: 2.4 cm RA Area: 21.3 cm2 Additional Vessels Name Value Ao Ascendin.4 cm Findings: Left Ventricle: Normal size left ventricle. No LV hypertrophy. Normal global systolic LV function. EF is 66 %. No regional wall motion abnormality. Normal diastolic LV function. Right Ventricle: Normal size right ventricle. Normal RV function. Left Atrium: The left atrium is normal in size. Normal appearing atrial septum. Right Atrium: The right atrium is normal in size. Mitral Valve: The mitral valve is normal in appearance and function. There is no mitral valve regurgitation. No mitral stenosis is present. Aortic Valve: The aortic valve is tri-leaflet. There is no aortic valve regurgitation. No aortic valve stenosis is present. Tricuspid Valve: The tricuspid valve is normal in appearance and function. Trivial tricuspid valve regurgitation. Right ventricular systolic pressure measures 22mmHg. The pulmonary artery pressure is normal. Pulmonic Valve: Pulmonary valve not well visualized. There is no pulmonic regurgitation seen. Aorta: Normal size aortic root measuring 3.8 cm. Normal size ascending aorta measuring 3.4 cm. Pericardium: No pericardial effusion. (No Signature Object) Patient: DANILO BUTTERFIELD Study Date: 06/08/2018 Page 2 of 2 07:36 AM [id number]
[2018-06-08] MEDS ORDERED: FAMOTIDINE 20 MG TAB PO ONE ×2 (12:26→17:15)
[2018-06-08] MEDS ORDERED: DIAZEPAM 5 MG TAB PO ONE ×2 (12:26→17:15)
[2018-06-08] MEDS ORDERED: diphenhydrAMINE 25 MG CAP PO ONE ×2 (12:26→17:15)
[2018-06-08] MEDS ORDERED: TEMAZEPAM 15 MG CAP PO PRN (12:26)
[2018-06-08] MEDS ORDERED: NS 1,000 ML IV SCH (12:30)
--- NOTE | 2018-06-08 12:44 | PDHPUP ---
History & Physical Update H&P update statement: This history and physical update is based on an assessment of the patient which was completed after admission or registration (within 24 hours), but prior to the surgery/procedure. H&P update: H&P reviewed & patient examined, changes noted (pt with CCS class IV angina needs cath instead of stress test...)
--- NOTE | 2018-06-08 12:45 | PDPROPOC ---
Sedation Plan of Care Sedation Plan of Care: vital signs stable, mental status noted, patient educated of risks, benefits, alternatives, patient can tolerate sedation ASA Classification: ASA 3 Planned drugs: fentanyl, midazolam Mallampati Score: Class 4 Mallampati Reference Image: Patient passed 3-3-2 rule?: No
[2018-06-08] MEDS ORDERED: IOPAMIDOL (ISOVUE-370) 150 ML BTL IV ONE (17:02)
[2018-06-08] MEDS ORDERED: LIDOCAINE 1% 300 MG/30 ML SDV ONE (17:02)
[2018-06-08] MEDS ORDERED: MIDAZOLAM 2 MG/2 ML VIAL ONE (17:02)
[2018-06-08] MEDS ORDERED: fentaNYL 100 MCG/2 ML INJ ONE (17:02)
--- NOTE | 2018-06-08 17:18 | PDDXCAT ---
Diagnostic Cath Note - . Date: 06/08/18 Display Coordinator: Tylor Indication: CCC Class III and IV angina on medical treatment - Procedure Access: right groin Procedure: left heart catheterization, coronary angiography, left ventriculogram - Materials Left Heart Cath size: 6F Left Heart Cath materials: JL4.0, JR4.0, pigtail - Findings-Left Heart Catheterization LM: 5.0mm in size and is short. Birfurcates into an LAD and circumflex system with MEGAN III flow LAD: 3.5mm in size. Has been previously stented in the segment distal to the first diagonal. There is 20% in stent restenois in the LAD stents. No eveidence of significant restenosis. LCX: 4.0mm in size with three significant obtuse marginal branches. It terminates as a small 1.5mm PDA vessel making the coronary circulation co dominant. There is MEGAN III flow and no evidence of flow limiting obstruction. RCA: 2.5mm in size. This vessel is co dominant and terminates as a small PDA vessel. MEGAN III flow to the distal vessel. EDP: 19mmHg LVEF: 55%. No significant MR or aortic stenosis upon pullback across the aortic valve. Wall motion: On the LV gram there is normal LV systolic function. The EF is 55% . Anterior wall and apical hypokinesis. 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 There is no gradient on pullback across the aortic valve. There is no evidence of estela dissection or aneurysm formation. - Findings-Right Heart Catheterization AO: 115/86 Complications: NONE Estimated blood loss: <50ml Closure method: Angioseal Assessment: The patient has a history of [place] vessel coronary disease. His chest pain symptoms do not appear to be related to instent restenosis or a de jose of the heart circulation. The LV ejection fraction is preserved and there is no evidence of Mitral regurgitation, aortic stenosis or thoracic aortic aneurysm. Plan: The patient appears to be a good candidate for medical management. I think the patient can be discharged to home in the AM if there are no groin complications. Intervention: NONE Patient Problems: Problems Problem Status Onset Acute chest pain Acute CAD in [place] artery Acute Chest pain Acute Hypoxic Acute
--- NOTE | 2018-06-08 17:30 | ASMTCMCOM ---
CM Note CM Note Notes: Pt admitted for chest pain, CAD with placement of stents today in the [facility]. Pt unavailable for discussion with CM, but pt has no address. Unsure if pt is homeless or not. D/C need TBD. CM to follow. D/C Plan: TBD Date Signed: 06/08/2018 05:29 PM Electronically Signed By:Staci Hua
[2018-06-08] MEDS ORDERED: ATROPINE SULFATE 1 MG/10 ML SYR IVP PRN (18:11)
[2018-06-08] MEDS ORDERED: ONDANSETRON 4 MG/2 ML VIAL IVP PRN (18:11)
[2018-06-08] MEDS: METOPROLOL TARTRATE 25 MG TAB PO SCH (19:54)
[2018-06-08] MEDS: ATORVASTATIN CALCIUM 40 MG TAB PO SCH (19:54)
[2018-06-09] MEDS ORDERED: oxyCODONE IR 5 MG TAB PO PRN (01:16)
[2018-06-09 07:11] VITALS: BP 125/75
[2018-06-09] MEDS: ASPIRIN 81 MG CHEWABLE TAB PO SCH (09:29)
[2018-06-09] MEDS: QUEtiapine FUMARATE 100 MG TAB PO SCH (09:29)
[2018-06-09] MEDS: LOSARTAN POTASSIUM 25 MG TAB PO SCH (09:29)
[2018-06-09] MEDS: FESOTERODINE FUMARATE 8 MG TAB.ER PO SCH (09:29)
[2018-06-09] MEDS: VENLAFAXINE HCL 75 MG TAB PO SCH (09:30)
[2018-06-09] MEDS: INSULIN REGULAR HUMAN SQ SCH (09:30)
[2018-06-09] MEDS: ENOXAPARIN 40 MG/0.4 ML SYR SC SCH (09:35)
--- NOTE | 2018-06-09 12:12 | ASMTCMCOM ---
CM Note CM Note Notes: Pts case discussed w/ Dr. Bragg and CEDRIC Collins. CM met w/ pt for dispo planning. Pt reports that he does not have any needs. Pt did request for a bus voucher. Pt reports that he left his car at [facility]. Pt reports that he stays there regularly. Pt reports that he is connected w/ [facility]. Pt reports that he will follow up w/ [facility]. No other needs at this time. CM available for changes. Plan: Independent Date Signed: 06/09/2018 11:37 AM Electronically Signed By:PONCE Snyder
--- NOTE | 2018-06-09 12:24 | ASMTLACE ---
LACE Length of stay for Answers: 2 days current admission Acuity / Level of Answers: Yes Care: Did the patient have an inpatient admission? Comorbidities - select Answers: Coronary Artery Disease all that apply Diabetes (uncontrolled or controlled) Opioid dependence / Chronic pain Previous myocardial infarction Other Notes: HTN # of Emergency department Answers: 1-2 visits in the last 6 months Score: 15 Date Signed: 06/09/2018 11:49 AM Electronically Signed By:PONCE Snyder
--- NOTE | 2018-06-10 11:49 | CPEKG ---
Test Reason : OPEN Blood Pressure : / mmHG Vent. Rate : 061 BPM Atrial Rate : 061 BPM P-R Int : 144 ms QRS Dur : 097 ms QT Int : 411 ms P-R-T Axes : 068 -04 051 degrees QTc Int : 414 ms Sinus rhythm Confirmed by Jose C Calderon ([id number]) on 06/10/2018 11:48:23 AM Referred By: Confirmed By:Jose C Calderon
== END 2018-06-09 13:16 | disposition home or self-care (01) ==
LOC: F2W 18:29
PROVIDERS: ADMIT Internal Medicine; ATTEND Internal Medicine
DX: I25.119 Atherosclerotic heart disease of native coronary artery with unspecified angina pectoris (principal); Z95.5 Presence of coronary angioplasty implant and graft; I25.2 Old myocardial infarction; I10 Essential (primary) hypertension; E78.5 Hyperlipidemia, unspecified; E11.9 Type 2 diabetes mellitus without complications; E66.09 Other obesity due to excess calories; Z85.09 Personal history of malignant neoplasm of other digestive organs; Z85.46 Personal history of malignant neoplasm of prostate
CPT/HCPCS: 71045; 93005; 93306; 93458; 96372; 99285; C1760; G0378; J1644; J1650; J2250; J3010; Q9967; 84484-PO

== ENCOUNTER → 2018-06-22 | Outpatient (CLI) | payer OTHER | LOC: BHFA 14:00 | PROVIDERS: ATTEND Internal Medicine Cardiovascular Disease | DX: I25.10 Atherosclerotic heart disease of native coronary artery without angina pectoris (principal) | CPT/HCPCS: 78452; 93017; A9500; J2785 ==

== ENCOUNTER → 2018-06-28 | Outpatient (CLI) | payer OTHER | LOC: FIMAGING 13:11 | PROVIDERS: ATTEND Internal Medicine Hematology & Oncology | DX: R19.00 Intra-abdominal and pelvic swelling, mass and lump, unspecified site (principal); Z85.46 Personal history of malignant neoplasm of prostate ==